=== PATIENT | female | born 1985 | race Hispanic/Latino ===

== ENCOUNTER 2018-03-17 22:45 | Emergency (ER) | payer MEDICAID, OTHER ==
[2018-03-17 23:09] LABS: APPEARANCE,URINE Clear (CLEAR); BILIRUBIN,URINE Negative (NEGATIVE); COLOR,URINE Yellow (YELLOW); GLUCOSE, URINE (UA) Negative (NEGATIVE); KETONES,URINE Negative (NEGATIVE); LEUKOCYTE ESTERASE ,URINE Negative (NEGATIVE); NITRATE,URINE Negative (NEGATIVE); OCCULT BLOOD,URINE Negative (NEGATIVE); PROTEIN,URINE Negative (NEGATIVE); UROBILINOGEN,URINE 0.2 mg/dL (0.2-1.0)
[2018-03-17 23:17] LABS: AMPHET/METH SCREEN,URINE NEGATIVE (NEGATIVE); BARBITURATE SCREEN, URINE NEGATIVE (NEGATIVE); BENZODIAZEPINES SCREEN,URINE NEGATIVE (NEGATIVE); CANNABINOID SCREEN,URINE NEGATIVE (NEGATIVE); COCAINE SCREEN,URINE NEGATIVE (NEGATIVE); OPIATE SCREEN,URINE NEGATIVE (NEGATIVE); PHENCYCLIDINE SCREEN,URINE NEGATIVE (NEGATIVE)
[2018-03-17 23:29] LABS: BASOPHILS % (AUTO) 0.8 % (0.0-5.0); EOSINOPHILS % (AUTO) 0.8 % (0.0-8.0); HEMATOCRIT 36.8 % (36-48); LYMPHOCYTES % (AUTO) 20.5 % (21.0-51.0); MEAN CORPUSCULAR HEMOGLOBIN 28.8 pg (27.0-33.0); MEAN CORPUSCULAR HGB CONC 33.7 g/dL (32.0-36.0); MEAN CORPUSCULAR VOLUME 85.3 fL (79-99); MONOCYTES % (AUTO) 5.4 % (3.0-13.0); NEUTROPHILS % (AUTO) 72.5 % (40.0-77.0); PLATELET COUNT (AUTO) 339 K/uL (130-400); RED BLOOD CELL COUNT(AUTO) 4.31 MIL/uL (4.00-5.50); RED CELL DISTRIBUTION WIDTH 14.5 % (11.0-15.5); WHITE BLOOD COUNT (AUTO) 10.9 K/uL (4.8-10.8)
[2018-03-17 23:36] LABS: CREATININE 0.6 mg/dL (0.5-1.5); POTASSIUM 3.5 mmol/L (3.5-5.1)
[2018-03-17 23:41] LABS: INR 0.98 (0.85-1.15); PARTIAL THROMBOPLASTIN TIME 26.6 SEC (26.3-35.5); PROTHROMBIN TIME 10.3 SEC (9.6-11.6)
[2018-03-17 23:50] LABS: ALBUMIN 3.5 g/dL (3.5-5.0); BILIRUBIN,TOTAL 0.1 mg/dL (0.2-1.0); CREATINE KINASE MB 0.8 ng/mL (0.5-3.6); TOTAL PROTEIN, SERUM 7.8 g/dL (6.0-8.3)
== END 2018-03-18 00:15 | disposition home or self-care (01) ==
LOC: EDH 22:45
DX: R42 Dizziness and giddiness (principal); R03.0 Elevated blood-pressure reading, without diagnosis of hypertension; Z98.890 Other specified postprocedural states
CPT/HCPCS: 36415; 80053; 80305; 81003; 81025; 82550; 82553; 84484; 85025; 85610; 85730; 93005

== ENCOUNTER 2018-10-06 21:34 | Emergency (ER) | payer SELFPAY | END 2018-10-06 22:51 | disposition home or self-care (01) | LOC: EDH 21:34 | DX: M79.602 Pain in left arm (principal); R03.0 Elevated blood-pressure reading, without diagnosis of hypertension | CPT/HCPCS: 93005 ==

== ENCOUNTER 2019-07-16 22:29 | Emergency (ER) | payer MEDICAID ==
[2019-07-16] MEDS ORDERED: SODIUM CHLORIDE 0.9% 1000ML 1,000 ML IV ONE (23:24)
[2019-07-16 23:33] LABS: BASOPHILS % (AUTO) 1.5 % (0.0-5.0); EOSINOPHILS % (AUTO) 2.6 % (0.0-8.0); LYMPHOCYTES % (AUTO) 29.5 % (21.0-51.0); MEAN CORPUSCULAR HEMOGLOBIN 28.9 pg (27.0-33.0); MEAN CORPUSCULAR HGB CONC 34.1 g/dL (32.0-36.0); MEAN CORPUSCULAR VOLUME 84.9 fL (79-99); MONOCYTES % (AUTO) 6.4 % (3.0-13.0); PLATELET COUNT (AUTO) 333 K/uL (130-400); RED BLOOD CELL COUNT(AUTO) 4.24 MIL/uL (4.00-5.50); RED CELL DISTRIBUTION WIDTH 14.6 % (11.0-15.5); WHITE BLOOD COUNT (AUTO) 9.8 K/uL (4.8-10.8)
[2019-07-16 23:42] LABS: CREATININE 0.5 mg/dL (0.5-1.5); POTASSIUM 3.8 mmol/L (3.5-5.1)
[2019-07-17 00:06] LABS: APPEARANCE,URINE Clear (CLEAR); BILIRUBIN,URINE Negative (NEGATIVE); COLOR,URINE Yellow (YELLOW); GLUCOSE, URINE (UA) Negative (NEGATIVE); KETONES,URINE Negative (NEGATIVE); LEUKOCYTE ESTERASE ,URINE Negative (NEGATIVE); NITRATE,URINE Negative (NEGATIVE); OCCULT BLOOD,URINE Moderate (NEGATIVE); PROTEIN,URINE Negative (NEGATIVE); UROBILINOGEN,URINE 0.2 mg/dL (0.2-1.0)
[2019-07-17 00:25] LABS: BACTERIA,URINE None Seen /HPF (None Seen); SQUAMOUS EPITHELIAL CELL,UR Few /HPF (0-2); WBC,URINE None Seen /HPF (0-1)
== END 2019-07-17 00:51 | disposition home or self-care (01) ==
LOC: EDH 22:29
DX: O20.0 Threatened abortion (principal); Z98.890 Other specified postprocedural states; Z3A.01 Less than 8 weeks gestation of pregnancy
CPT/HCPCS: 36415; 76801; 80048; 81001; 84702; 85025; 99284; J7030

== ENCOUNTER 2023-11-18 21:30 | Emergency (ER) | payer MEDICAID, OTHER ==
[~2023-11-18] VITALS: Ht 160 cm; Wt 66.2 kg
[2023-11-18 21:52] LABS: RAPID GROUP A STREP negative (NEGATIVE)
[2023-11-18 22:00] LABS: INFLUENZA TYPE A Negative For Type A (NEGATIVE); INFLUENZA TYPE B Negative For Type B (NEGATIVE)
[2023-11-18] MEDS ORDERED: ONDANSETRON ODT 4MG TAB SL ONE (22:00)
[2023-11-18] MEDS ORDERED: ACETAMINOPHEN 500 MG TABLET PO ONE (22:00)
[2023-11-18 22:03] LABS: SARS-CoV-2, RNA, NAAT NEGATIVE SARS CoV-2 (NEGATIVE)
[2023-11-18 22:04] LABS: APPEARANCE,URINE CLEAR (CLEAR); BILIRUBIN,URINE NEGATIVE (NEGATIVE); COLOR,URINE YELLOW (YELLOW); GLUCOSE, URINE (UA) NEGATIVE (NEGATIVE); KETONES,URINE >=80 mg/dL (NEGATIVE); LEUKOCYTE ESTERASE ,URINE NEGATIVE Leu/uL (NEGATIVE); NITRATE,URINE NEGATIVE (NEGATIVE); OCCULT BLOOD,URINE MODERATE (NEGATIVE); PH,URINE 5.5 (5.0-8.0); PROTEIN,URINE 70 mg/dL (NEGATIVE); UROBILINOGEN,URINE 0.2 mg/dL (0.2-1.0)
[2023-11-18 22:05] LABS: ADD UA MICROSCOPIC YES
[2023-11-18 22:07] LABS: HCG,QUALITATIVE URINE NEGATIVE (NEGATIVE)
[2023-11-18 22:09] LABS: BACTERIA,URINE RARE /HPF (None Seen); MUCUS,URINE MANY LPF (None Seen); SQUAMOUS EPITHELIAL CELL,UR FEW /HPF (0-2)
[2023-11-18 22:20] VITALS: TEMP 101.2
[2023-11-19] MEDS ORDERED: L AC460C PO (01:15)
[2023-11-19] MEDS ORDERED: ONDA4TAB10 PO (01:15)
[2023-11-19 01:25] VITALS: BP 127/67; PULSE 85; RESP 16; O2SAT 98
== END 2023-11-19 01:28 | disposition home or self-care (01) ==
LOC: EDH 21:30
DX: A08.4 Viral intestinal infection, unspecified (principal); R19.7 Diarrhea, unspecified; R11.10 Vomiting, unspecified; Z20.822 Contact with and (suspected) exposure to COVID-19; Z98.890 Other specified postprocedural states; Z79.899 Other long term (current) drug therapy
CPT/HCPCS: 81001; 81025; 87088; 87635; 87804; 87880

== ENCOUNTER 2025-02-23 23:09 | Observation (INO) | payer BC ==
[~2025-02-23] VITALS: Ht 160 cm; Wt 67.8 kg
--- NOTE | 2025-02-23 23:14 | NUR ---
UA CUP PROVIDED
[2025-02-23 23:30] LABS: BASOPHILS # (AUTO) 0.09 K/uL (0.00-0.20); BASOPHILS % (AUTO) 0.8 % (0.0-5.0); EOSINOPHILS # (AUTO) 0.09 K/uL (0.00-0.70); EOSINOPHILS % (AUTO) 0.8 % (0.0-8.0); HEMATOCRIT 37.6 % (36-48); IMMATURE GRANULOCYTE ABSOLUTE 0.04 K/uL (0-1); LYMPHOCYTES # (AUTO) 3.1 K/uL (1.0-4.8); LYMPHOCYTES % (AUTO) 27.8 % (21.0-51.0); MEAN CORPUSCULAR HEMOGLOBIN 28.7 pg (27.0-33.0); MEAN CORPUSCULAR HGB CONC 32.7 g/dL (32.0-36.0); MEAN CORPUSCULAR VOLUME 87.6 fL (79-99); MONOCYTES # (AUTO) 0.7 K/uL (0.1-1.0); MONOCYTES % (AUTO) 6.1 % (3.0-13.0); NEUTROPHILS # (AUTO) 7.3 K/uL (1.8-7.7); NEUTROPHILS % (AUTO) 64.1 % (40.0-77.0); PLATELET COUNT (AUTO) 403 K/uL (130-400); RED BLOOD CELL COUNT(AUTO) 4.29 MIL/uL (4.00-5.50); RED CELL DISTRIBUTION WIDTH 14.3 % (11.0-15.5); WHITE BLOOD COUNT (AUTO) 11.3 K/uL (4.8-10.8)
[2025-02-23] MEDS ORDERED: morPHINE 2 MG SYG IVP ONE (23:30)
[2025-02-23] MEDS ORDERED: ondanSETRON 4MG INJ IVP ONE (23:30)
[2025-02-23 23:45] LABS: CREATININE 0.8 mg/dL (0.5-1.0); POTASSIUM 3.3 mmol/L (3.5-5.1)
[2025-02-23 23:49] LABS: ALBUMIN 3.8 g/dL (3.5-5.0); BILIRUBIN,DIRECT 0.1 mg/dL (0.0-0.3); BILIRUBIN,TOTAL 0.1 mg/dL (0.2-1.0); TOTAL PROTEIN, SERUM 8.3 g/dL (6.0-8.3)
[2025-02-24] VITALS (7 sets, daily range): BP systolic 107–130; BP diastolic 63–86; PULSE 55–72; RESP 16–18; TEMP 97.6–98.2; O2SAT 99
[2025-02-24] MEDS: hydroMORPHone 1 MG INJ IVP ONE (00:03)
[2025-02-24] MEDS: ondanSETRON 4MG INJ IVP ONE (00:03)
[2025-02-24] MEDS ORDERED: IOHEXOL-350 75 ML VIAL IV ONE (00:30)
[2025-02-24] MEDS ORDERED: LACTULOSE 20 GM/30 ML UDCUP PO PRN (01:30)
[2025-02-24] MEDS ORDERED: acetaMINOPHEN 650 MG SUPPOSITORY RC PRN (01:30)
[2025-02-24] MEDS ORDERED: hydroMORPHone 1 MG INJ IVP PRN (01:30)
[2025-02-24] MEDS ORDERED: ondanSETRON 4MG INJ IVP PRN (01:30)
[2025-02-24] MEDS ORDERED: hydrALAZine 20MG/ML VIAL IV PRN (01:30)
[2025-02-24] MEDS ORDERED: doCUSate SODIUM 100 MG CAP PO PRN (01:30)
--- NOTE | 2025-02-24 01:30 | HMCIMG ---
CT ABDOMEN/PELVIS W/CONTRAST HISTORY: Abdominal pain COMPARISON: None TECHNIQUE: Multiple sequential axial images of the abdomen and pelvis were obtained from the dome of the diaphragm through symphysis pubis. Patient was given 75 cc of through intravenous route. Oral contrast was not given. FINDINGS: No pleural effusion is seen bilaterally. There is no evidence of parenchymal disease or pulmonary nodule of the visualized lower lungs. Degenerative changes of the thoracolumbar spine are present. The heart is not enlarged. Liver is borderline enlarged measuring 16.3 cm. Gallbladder is distended with pericholecystic fluid. Acute cholecystitis cannot be excluded. There is diverticulosis. The liver, spleen, adrenal glands and pancreas are unremarkable. There is no evidence of hydronephrosis bilaterally. No evidence of renal stone is seen. Fecal material is seen in the colon. There are normal size retroperitoneal and mesenteric lymph nodes. No ascites is seen. Atherosclerotic changes are present. Pelvic sidewalls are symmetric bilaterally. There is moderately distended. IMPRESSION: 1. Gallbladder is distended with pericholecystic fluid. Acute cholecystitis cannot be excluded. CT was performed with one or more following dose reduction techniques: automated exposure control, adjustment of the mA and kv according to patient's size, or use of a iterative reconstruction technique.
--- NOTE | 2025-02-24 01:37 | HP ---
[facility] HISTORY AND PHYSICAL Date of Service: Feb 24, 2025 Time of Service: 01:37 PCP: Dr. Thea Silva Attending/supervising physicians: Dr. Jordan and Dr. Mcconnell HISTORY OF PRESENT ILLNESS: Ms Tovar is a 39-year-old female with a past medical history of cholelithiasis who presented to [facility] for evaluation of severe midepigastric abdominal pain that radiates to the back. The pain started suddenly at approximately 6:00 p.m. today. She reports associated nausea with vomiting. Denies any fevers. The pa in is rated 10/10. Her symptoms started 1 hour after she ate chicken and pasta. She was seen in this emergency department on 02/17/2025 for the same complaint and was admitted but ultimately discharged with a diagnosis of biliary colic. The patient reports that she was seen by General surgery, but was told that no surgery was needed during that admission. CT abdomen and pelvis without contrast: 1. Gallbladder is distended with pericholecystic fluid. Acute cholecystitis cannot be excluded. ED provider administered Zosyn 3.375, Dilaudid1 mg IV, Zofran 4 mg IV x2 doses, morphine2 mg IV. ED provider request patient be admitted with the diagnosis of acute cholecystitis. I assessed the patient in 412. Patient was comfortable, in no distress. I informed the patient of labs, diagnostics, and plan of care. She verbalized understanding and is in agreement with the plan. Plan and assessment are listed below. REVIEW OF SYSTEMS ROS reviewed with patient. All pertinent positives mentioned above. Otherwise negative, noncontributory, or non-pertinent. PAST MEDICAL HISTORY: As mentioned above PAST SURGICAL HISTORY: and tummy tuck PAST SOCIAL HISTORY: Denied alcohol, tobacco, illicit drug use FAMILY HISTORY: Noncontributory Coded Allergies: No Known Drug Allergies (Unverified Allergy, Unknown, 07/17/19) PHYSICAL EXAM GENERAL APPEARANCE: The patient is awake, alert, and oriented, in no acute cardiopulmonary distress. NEUROLOGICAL: Cranial nerves II-XII grossly intact. Motor is 5/5 in bilateral upper and lower extremities proximal to distal. No sensory deficits. HEENT: Face is symmetric. Pupils are equal and reactive. Extraocular movements are intact. NECK: Supple. No JVD. No thyromegaly. No submental, submandibular, pre- /postauricular, occipital or supraclavicular lymphadenopathy. CHEST: Normal chest expansion. No Telemetry. LUNGS: Absence of any rales, rhonchi or any wheezing. CARDIOVASCULAR: Regular. S1 and S2 normal. No appreciable rubs, murmurs or gallops. ABDOMEN: Soft, nontender, and nondistended. There is no rebound, voluntary guarding, or rigidity. : Deferred. No Terrazas. EXTREMITIES: Non-edematous and not cyanotic. No clubbing. Good capillary refill. SKIN: No skin breakdown. Vital Sign (Last 24 Hours) 02/24/25 00:07 Temp 98.4 Pulse 68 Resp 18 B/P (MAP) 117/61 Pulse Ox 97 O2 Delivery Room Air* O2 Flow Rate 0 FiO2 21 LABS: Laboratory: Test 02/23/25 23:24 Range/Units White Blood Count 11.3 H 4.8-10.8 K/uL Red Blood Count 4.29 4.00-5.50 MIL/uL Hemoglobin 12.3 12.0-16.0 g/dL Hematocrit 37.6 36-48 % Mean Corpuscular Volume 87.6 79-99 fL Mean Corpuscular Hemoglobin 28.7 27.0-33.0 pg Mean Corpuscular Hemoglobin Concent 32.7 32.0-36.0 g/dL Red Cell Distribution Width 14.3 11.0-15.5 % Platelet Count 403 H 130-400 K/uL Mean Platelet Volume 10.2 7.5-10.5 fL Immature Granulocyte % (Auto) 0.4 0-1 % Neutrophils (%) (Auto) 64.1 40.0-77.0 % Lymphocytes (%) (Auto) 27.8 21.0-51.0 % Monocytes (%) (Auto) 6.1 3.0-13.0 % Eosinophils (%) (Auto) 0.8 0.0-8.0 % Basophils (%) (Auto) 0.8 0.0-5.0 % Neutrophils # (Auto) 7.3 1.8-7.7 K/uL Lymphocytes # (Auto) 3.1 1.0-4.8 K/uL Monocytes # (Auto) 0.7 0.1-1.0 K/uL Eosinophils # (Auto) 0.09 0.00-0.70 K/uL Basophils # (Auto) 0.09 0.00-0.20 K/uL Absolute Immature Granulocyte (auto 0.04 0-1 K/uL Nucleated Red Blood Cells 0.0 0.0-0.19 % Sodium Level 138 136-145 mmol/L Potassium Level 3.3 L 3.5-5.1 mmol/L Chloride Level 101 101-111 mmol/L Carbon Dioxide Level 29 21-32 mmol/L Blood Urea Nitrogen 24 H 7-18 mg/dL Creatinine 0.8 0.5-1.0 mg/dL Glomerular Filtration Rate Calc 97 >90 mL/min Random Glucose 133 H 70-105 mg/dL Total Calcium 8.2 L 8.5-10.1 mg/dL Total Bilirubin 0.1 L 0.2-1.0 mg/dL Direct Bilirubin 0.1 0.0-0.3 mg/dL Aspartate Amino Transf (AST/SGOT) 14 10-37 U/L Alanine Aminotransferase (ALT/SGPT) 20 12-78 U/L Alkaline Phosphatase 74 50-136 U/L Total Protein 8.3 6.0-8.3 g/dL Albumin 3.8 3.5-5.0 g/dL Lipase 55 16-77 U/L Serum Test, Qualitative NEGATIVE NEGATIVE Current Medications Medications (Trade) Dose Ordered Sig/Isaura Route PRN Reason Start Time Stop Time Status Last Admin Dose Admin Acetaminophen (TYLenol 325MG TAB) 650 mg Q6H PRN PO FEVER/MILD PAIN LEVEL 1-3 02/24/25 01:30 03/26/25 01:29 UNV Acetaminophen (TYLenol 650MG SUPPOSITORY) 650 mg Q6H PRN RC FEVER / MILD PAIN 1-3 IF NPO 02/24/25 01:30 03/26/25 01:29 UNV Dextrose (D50w) 50 ml AD PRN IV HYPOGLYCEMIA PROTOCOL 02/24/25 02:00 03/26/25 01:59 UNV Docusate Sodium (COLace 100MG CAP) 100 mg BID PRN PO c 02/24/25 01:30 03/26/25 01:29 UNV Glucagon (Glucagon 1mg Kit) 1 mg AD PRN IM HYPOGLYCEMIA PROTOCOL 02/24/25 02:00 03/26/25 01:59 UNV Hydralazine HCl (APRESOLine 20MG INJ) 10 mg Q6H PRN IV SBP GREATER THAN 160 02/24/25 01:30 03/26/25 01:29 UNV Hydromorphone HCl (DiLAUDid 1MG INJ) 1 mg Q4H PRN IVP SEVERE PAIN (7-10) 02/24/25 01:30 03/01/25 01:29 UNV Insulin Human Regular (humuLIN R 100 UNIT/ML 3ML) INSULIN SLIDING SCAL... Q6H6 SQ 02/24/25 06:00 03/26/25 05:59 UNV Lactated Ringer's 1,000 ml @ 75 mls/hr [id number] IV 02/24/25 01:30 03/26/25 01:29 UNV Lactulose (Constulose 20gm/ 30ml Udcup) 20 gm Q6H PRN PO CONSTIPATION 02/24/25 01:30 03/26/25 01:29 UNV Magnesium Sulfate 50 ml @ 0 mls/hr PROTOCOL PRN IV MAGNESIUM PROTOCOL 02/24/25 02:00 03/26/25 01:59 UNV Ondansetron HCl (zoFRAN 4MG INJ) 4 mg Q6H PRN IVP NAUSEA/VOMITING 02/24/25 01:30 03/26/25 01:29 UNV Potassium Chloride 100 ml @ 100 mls/hr AD PRN IV POTASSIUM PROTOCOL 02/24/25 02:00 03/26/25 01:59 UNV Temazepam (restORIL 15 MG CAP) 15 mg HS PRN PO INSOMNIA/SLEEP 02/24/25 01:30 03/26/25 01:29 UNV DIAGNOSTICS / RADIOLOGY: [ ] ASSESSMENT: Distended gallbladder with pericholecystic fluid, acute cholecystitis not exc luded per CT on 02/23/2025 Intractable abdominal pain, POA Leukocytosis. Hypokalemia) Acute dehydration, POA Ketonuria Hyperglycemia History of diverticulitis PLAN: Admit patient to medical floor. P.r.n. medications for: Pain management, nausea, vomiting, fever, constipation, hypertension Keep NPO for now. LR at 75 mL an hour. Continue Zosyn IV. Consult general surgery. Monitor liver and renal function. Monitor electrolytes and treat accordingly. Oxygen as needed to keep SpO2 equal greater than 92%. Glucometer checks a.c. and HS with insulin regular sliding scale coverage as needed. Blood pressure checks every 4 hours and as needed. Reconcile home medications once available. A.m. labs: CBC, CMP, Mag, phos, TSH, A1c. GI and DVT prophylaxis. ADVANCED CARE PLANNING 1. Which of the following were discussed? Hospice Care - No Therapeutic options - Yes Advance Directives - Yes Other discussions - 2. Discussed with who? Patient 3. Voluntary nature of this service was explained to the patient? Yes 4. Amount of time spent - __ over 35 minute 5. Reviewed by Physician? (if this service was performed by NPP) Yes ATTESTATION BY PHYSICIAN I have seen and examined the patient. I reviewed the documentation, medical decision making, and treatment plan as noted by the mid-level provider above. I agree with the findings and plan of care. ML [facility] Feb 24, 2025 01:37
--- NOTE | 2025-02-24 01:55 | ERN ---
General Chief Complaint: Abdominal Pain Stated Complaint: ABD PAIN Time Seen by MD: 23:13 Time Seen by Midlevel: 23:13 Source: patient History of Present Illness Initial Comments Patient is a 39-year-old female with a past medical history of cholelithiasis presenting to the emergency department with a severe midepigastric abdominal pain that radiates to the back. The pain started suddenly at approximately 6:00 p.m. today. She reports associated nausea with vomiting. Denies any fevers. The pain is rated 10/10. Her symptoms started 1 hour after she ate chicken and pasta. She was seen in our emergency department on 02/17/2025 for the same complaint and was admitted but ultimately discharged with a diagnosis of biliary colic. Allergies: Coded Allergies: No Known Drug Allergies (Unverified Allergy, Unknown, 07/17/19) Home Meds No Active Prescriptions or Reported Meds Past Medical History Past Medical History: Diverticulitis Past Surgical History: Other, Surgical History Other: TUMMY TUCK Female( History) History: Not Applicable LMP: Feb 08, 2025 ROS Dictation CONSTITUTIONAL: Negative except for HPI HEAD/FACE: Negative except for HPI EENT: Negative except for HPI RESPIRATORY: Negative except for HPI GASTROINTESTINAL/ABDOMINAL: Negative except for HPI GENITOURINARY: Negative except for HPI MUSCULOSKELETAL: Negative except for HPI INTEGUMENTARY: Negative except for HPI NEUROLOGICAL/PSYCH: Negative except for HPI HEMATOLOGIC/LYMPHATIC: Negative except for HPI All Systems Negative, Except as noted above. 13 point review of systems assessed and all negative except for above. Physical Exam Physical Exam Dictation Vital Signs reviewed General Appearance: Alert, oriented x 3, moderate distress secondary to abdom inal pain Head and Face: non-traumatic. Eyes: PERRL, pink conjunctivas, eyelid no trauma, anterior chamber with arcus senilis. Ears: Pinnas intact and no signs of trauma or erythema ear canals clear and no discharge TM no erythema Nose: No discharge, no bleeding. Oropharynx: Mouth normal, tongue pink, pharynx clear,no erythema, tonsils no exudates, no abscesses noted, mucous membrane moist Neck: Supple, non-tender, no thyromegaly, no masses, no JVD, no bruits Breast:Deferred Chest:No tenderness, no crepitus, no paradoxical movement, no retractions Lungs:Clear, well-ventilated, symmetric, no rales, no wheezing, no rhonchi, no stridor, good breath sounds bilaterally Heart: Regular rate, regular rhythm, no murmur, no gallops Vascular: no peripheral edema, Abdomen: Soft, positive bowel sounds, nondistended, no guarding, Moderate right upper quadrant abdominal tenderness, positive rebound, no masses no hepatomegaly, no splenomegaly, no Gallegos's sign, no hernias. Rectal: Deferred Genital: Deferred Neurological: Normal speech, motor function intact, sensory function intact Musculoskeletal: Neck nontender, full range of motion, back nontender, full range of motion, Extremities: nontender, full range of motion Skin: Color pink, dry, no turgor, no rash, no lacerations, no abrasions, no contusions. Lymphatic: Deferred Results Laboratory and Microbiology Lab and Micro Result Laboratory Tests Test 02/23/25 23:24 White Blood Count 11.3 K/uL (4.8-10.8) H Red Blood Count 4.29 MIL/uL (4.00-5.50) Hemoglobin 12.3 g/dL (12.0-16.0) Hematocrit 37.6 % (36-48) Mean Corpuscular Volume 87.6 fL (79-99) Mean Corpuscular Hemoglobin 28.7 pg (27.0-33.0) Mean Corpuscular Hemoglobin Concent 32.7 g/dL (32.0-36.0) Red Cell Distribution Width 14.3 % (11.0-15.5) Platelet Count 403 K/uL (130-400) H Mean Platelet Volume 10.2 fL (7.5-10.5) Immature Granulocyte % (Auto) 0.4 % (0-1) Neutrophils (%) (Auto) 64.1 % (40.0-77.0) Lymphocytes (%) (Auto) 27.8 % (21.0-51.0) Monocytes (%) (Auto) 6.1 % (3.0-13.0) Eosinophils (%) (Auto) 0.8 % (0.0-8.0) Basophils (%) (Auto) 0.8 % (0.0-5.0) Neutrophils # (Auto) 7.3 K/uL (1.8-7.7) Lymphocytes # (Auto) 3.1 K/uL (1.0-4.8) Monocytes # (Auto) 0.7 K/uL (0.1-1.0) Eosinophils # (Auto) 0.09 K/uL (0.00-0.70) Basophils # (Auto) 0.09 K/uL (0.00-0.20) Absolute Immature Granulocyte (auto 0.04 K/uL (0-1) Nucleated Red Blood Cells 0.0 % (0.0-0.19) Sodium Level 138 mmol/L (136-145) Potassium Level 3.3 mmol/L (3.5-5.1) L Chloride Level 101 mmol/L (101-111) Carbon Dioxide Level 29 mmol/L (21-32) Blood Urea Nitrogen 24 mg/dL (7-18) H Creatinine 0.8 mg/dL (0.5-1.0) Glomerular Filtration Rate Calc 97 mL/min (>90) Random Glucose 133 mg/dL (70-105) H Total Calcium 8.2 mg/dL (8.5-10.1) L Total Bilirubin 0.1 mg/dL (0.2-1.0) L Direct Bilirubin 0.1 mg/dL (0.0-0.3) Aspartate Amino Transf (AST/SGOT) 14 U/L (10-37) Alanine Aminotransferase (ALT/SGPT) 20 U/L (12-78) Alkaline Phosphatase 74 U/L (50-136) Total Protein 8.3 g/dL (6.0-8.3) Albumin 3.8 g/dL (3.5-5.0) Lipase 55 U/L (16-77) Serum Test, Qualitative NEGATIVE (NEGATIVE) Labs Reviewed?: Yes MDM MDM: Patient is a 39-year-old female with a past medical history of cholelithiasis presenting to the emergency department with a severe midepigastric abdominal pain that radiates to the back. The pain started sudd enly at approximately 6:00 p.m. today. She reports associated nausea with vomiting. Denies any fevers. The pain is rated 10/10. Her symptoms started 1 hour after she ate chicken and pasta. She was seen in our emergency department on 02/17/2025 for the same complaint and was admitted but ultimately discharged with a diagnosis of biliary colic. Initial clinical evaluation reveals the patient in moderate amount of distress secondary to abdominal pain. Her initial vital signs are remarkable for a temperature of 96.8 heart rate is 64 beats per minute. Blood pressure is 150/88. O2 saturation is 100% on room air. Her CBC shows mild leukocytosis with a white blood cell count of 11.3. No anemia. Platelet count is slightly elevated at 403. Chemistries show slight hypokalemia with a potassium level of 3.3. Her bilirubin and liver function tests are unremarkable. Her lipase is normal. Her test was negative. However, upon arrival to the emergency department the patient was in severe distress. A CT scan of the abdomen/pelvis with contrast was obtained which reveals a distended gallbladder with pericholecystic fluid. The patient was started on Zosyn and the case was discussed with the hospitalist on-call who agrees to admit the patient for further observation and management. Differential diagnosis: Acute cholecystitis, pancreatitis, choledocholithiasis Rationale: Tests considered and ordered secondary to shared decision making include: Previous outside records reviewed: Old ER visits. Risk of complication and/or morbidity or mortality of patient management: None Medications-Per medication reconciliation Need for hospitalization: Patient does meet criteria for hospitalization. Need for emergency major/minor surgery: No There are no social concerns with this patient. Prescription drug management Prescriptions will include symptomatic care Patient's prior external medical records from other ER visits were reviewed by me as indicated. Prior testing and results from previous visits were reviewed. Prior tests were taken into account with medical decision making and resource utilization, independent historian/historians were used to obtain complete medical history. I independently interpreted the test that were performed, results were reviewed by me and considered findings on radiology if ordered. Medical management and examination interpretation discussions were had by me with other qualified healthcare professionals as indicated for the patient's care. ED Course Orders Procedure Category Date Status Time Cbc With Differential LAB 02/23/25 Complete 23:13 Basic Metabolic Panel LAB 02/23/25 Complete 23:13 Lipase LAB 02/23/25 Complete 23:13 Hepatic Function Panel LAB 02/23/25 Complete 23:13 Urinalysis Profile LAB 02/23/25 Logged 23:13 Testing, LAB 02/23/25 Complete Serum Hcg 23:13 Morphine 2mg Syg PHA 02/23/25 Complete (Morphine 2mg Syg) 23:30 Ondansetron 4mg Inj PHA 02/23/25 Complete (Zofran 4mg Inj) 23:30 Ondansetron 4mg Inj PHA 02/24/25 Complete (Zofran 4mg Inj) 00:00 Hydromorphone 1 Mg PHA 02/24/25 Complete Inj (Dilaudid 1mg Inj 00:00 Ct Abdomen/Pelvis CT 02/23/25 Resulted W/Contrast 23:48 Iohexol (Omnipaque) PHA 02/24/25 Complete 00:30 Admit Orders ADM 02/24/25 Transmitted 01:26 I&O Q Shift CPOE 02/24/25 Transmitted 01:29 Activity: Br W/Brp CPOE 02/24/25 Transmitted With Assist 01:29 Npo Except For Meds CPOE 02/24/25 Transmitted 01:29 O2 Order RT 02/24/25 Transmitted 01:29 Cbc Without LAB 02/25/25 Verified Differential 04:00 Basic Metabolic Panel LAB 02/25/25 Verified 04:00 Magnesium LAB 02/25/25 Verified 04:00 Phosphorus LAB 02/25/25 Verified 04:00 Lactated Ringers PHA 02/24/25 Logged 1000ml (Lactated 01:30 Acetaminophen 325 Tab PHA 02/24/25 Logged (Tylenol 325mg Tab 01:30 Acetaminophen 650mg PHA 02/24/25 Logged Supp (Tylenol 650mg 01:30 Lactulose 20 Gm/30 Ml PHA 02/24/25 Logged Udcup (Constulose 01:30 Docusate Sodium 100 PHA 02/24/25 Logged Mg Cap (Colace 100mg 01:30 Temazepam 15 Mg Cap PHA 02/24/25 Logged (Restoril 15 Mg Cap) 01:30 Ondansetron 4mg Inj PHA 02/24/25 Logged (Zofran 4mg Inj) 01:30 Hydralazine 20mg Inj PHA 02/24/25 Logged (Apresoline 20mg In 01:30 Hydromorphone 1 Mg PHA 02/24/25 Logged Inj (Dilaudid 1mg Inj 01:30 Apply Scds CPOE 02/24/25 Transmitted 01:29 Elevate Hob At 30 CPOE 02/24/25 Transmitted Degrees 01:29 Initiate CAITLIN 02/24/25 In Process Hyperglycemia Protoco 01:29 Insulin Regular, PHA 02/24/25 Logged Human 3ml (Humulin R 06:00 Magnesium 2gm Iv PHA 02/24/25 Verified 02:00 Initiate Hypoglycemia CAITLIN 02/24/25 Verified Protocol 01:33 Dextrose 50%-Water PHA 02/24/25 Verified (D50w) 02:00 Glucagon 1mg Kit PHA 02/24/25 Verified (Glucagon 1mg Kit) 02:00 Initiate Hypokalemia CPOE 02/24/25 Verified Npo Half 01:33 Potassium Chl 10 PHA 02/24/25 Verified Meq/100ml Iv 02:00 Notify Physician If CPOE 02/24/25 Verified There Is 01:33 Notify Md On The Next CPOE 02/24/25 Verified 01:33 Notify Md On The CPOE 02/24/25 Verified Next(Cont.) 01:33 Current Medications Medications (Trade) Dose Ordered Sig/Isaura Route PRN Reason Start Time Stop Time Status Last Admin Dose Admin Acetaminophen (TYLenol 325MG TAB) 650 mg Q6H PRN PO FEVER/MILD PAIN LEVEL 1-3 02/24/25 01:30 03/26/25 01:29 UNV Acetaminophen (TYLenol 650MG SUPPOSITORY) 650 mg Q6H PRN RC FEVER / MILD PAIN 1-3 IF NPO 02/24/25 01:30 03/26/25 01:29 UNV Docusate Sodium (COLace 100MG CAP) 100 mg BID PRN PO c 02/24/25 01:30 03/26/25 01:29 UNV Hydralazine HCl (APRESOLine 20MG INJ) 10 mg Q6H PRN IV SBP GREATER THAN 160 02/24/25 01:30 03/26/25 01:29 UNV Hydromorphone HCl (DiLAUDid 1MG INJ) 1 mg ONCE ONCE IVP 02/24/25 00:00 02/24/25 00:01 DC 02/24/25 00:03 Hydromorphone HCl (DiLAUDid 1MG INJ) 1 mg Q4H PRN IVP SEVERE PAIN (7-10) 02/24/25 01:30 03/01/25 01:29 UNV Insulin Human Regular (humuLIN R 100 UNIT/ML 3ML) INSULIN SLIDING SCAL... Q6H6 SQ 02/24/25 06:00 03/26/25 05:59 UNV Iohexol (Omnipaque) 75 ml STK-MED ONCE IV 02/24/25 00:30 02/24/25 00:31 DC Lactated Ringer's 1,000 ml @ 75 mls/hr [id number] IV 02/24/25 01:30 03/26/25 01:29 UNV Lactulose (Constulose 20gm/ 30ml Udcup) 20 gm Q6H PRN PO CONSTIPATION 02/24/25 01:30 03/26/25 01:29 UNV Morphine Sulfate (morPHINE 2MG SYG) 2 mg ONCE ONCE IVP 02/23/25 23:30 02/23/25 23:26 DC Ondansetron HCl (zoFRAN 4MG INJ) 4 mg ONCE ONCE IVP 02/23/25 23:30 02/23/25 23:26 DC Ondansetron HCl (zoFRAN 4MG INJ) 4 mg ONCE ONCE IVP 02/24/25 00:00 02/24/25 00:01 DC 02/24/25 00:03 Ondansetron HCl (zoFRAN 4MG INJ) 4 mg Q6H PRN IVP NAUSEA/VOMITING 02/24/25 01:30 03/26/25 01:29 UNV Temazepam (restORIL 15 MG CAP) 15 mg HS PRN PO INSOMNIA/SLEEP 02/24/25 01:30 03/26/25 01:29 UNV Vital Signs Date Time Temp Pulse Resp B/P (MAP) Pulse Ox O2 Delivery O2 Flow Rate FiO2 02/24/25 00:07 98.4 68 18 117/61 97 Room Air* 0 21 02/23/25 23:10 96.8 64 16 150/88 100 [place] [address] IMAGING REPORT Signed PATIENT: GRACIE MACIEL MR#: [id number] : 1985 SEX: F AGE: 39 LOCATION: [facility] ORDER 48 STATUS: REG ER REPORT#: [id number] SERVICE 47 REASON: Severe ruq abd pain r/o acute cholecystitis vs pancreatitis ORDERING PHYSICIAN: TRISH TERRELL PROCEDURE: ABD PEL W - CT ABDOMEN/PELVIS W/CONTRAST CT ABDOMEN/PELVIS W/CONTRAST HISTORY: Abdominal pain COMPARISON: None TECHNIQUE: Multiple sequential axial images of the abdomen and pelvis were obtained from the dome of the diaphragm through symphysis pubis. Patient was given 75 cc of through intravenous route. Oral contrast was not given. FINDINGS: No pleural effusion is seen bilaterally. There is no evidence of parenchymal disease or pulmonary nodule of the visualized lower lungs. Degenerative changes of the thoracolumbar spine are present. The heart is not enlarged. Liver is borderline enlarged measuring 16.3 cm. Gallbladder is distended with pericholecystic fluid. Acute cholecystitis cannot be excluded. There is diverticulosis. The liver, spleen, adrenal glands and pancreas are unremarkable. There is no evidence of hydronephrosis bilaterally. No evidence of renal stone is seen. Fecal material is seen in the colon. There are normal size retroperitoneal and mesenteric lymph nodes. No ascites is seen. Atherosclerotic changes are present. Pelvic sidewalls are symmetric bilaterally. There is moderately distended. IMPRESSION: 1. Gallbladder is distended with pericholecystic fluid. Acute cholecystitis cannot be excluded. CT was performed with one or more following dose reduction techniques: automated exposure control, adjustment of the mA and kv according to patient's size, or use of a iterative reconstruction technique. DICTATED BY: CONRAD JENKINS MD DATE: 02/24/25125 ELECTRONICALLY SIGNED BY: CONRAD JENKINS MD DATE: 02/24/25129 DX & DISP Disposition: Inpatient Departure Impression: Primary Impression: Acute cholecystitis Condition: Stable Scripts No Active Prescriptions or Reported Meds Referrals: CASSANDRA PUENTES MD (PCP) I have reviewed the case, and I agree with, Diagnosis and Plan I performed the substantive portion of the visit. I have reviewed and personally made and approve the management plan that is documented in the note by myself or the JANENE. I acknowledge for responsibility for the patient's management plan. TRISH TERRELL Feb 24, 2025 01:55
[2025-02-24] MEDS ORDERED: DEXTROSE 50%-WATER 50 ML DISP.SYRIN IV PRN (02:00)
[2025-02-24] MEDS ORDERED: PoTASSium chloRIDE 10MEQ/100ML 100 ML IV PRN (02:00)
[2025-02-24] MEDS ORDERED: GLUCAGON 1MG KIT 1 MG ML IM PRN (02:00)
[2025-02-24] MEDS ORDERED: MAGNESIUM 2GM PREMIX 50ML 50 ML IV PRN ×2 (02:00→11:30)
[2025-02-24] MEDS: LACTATED RINGERS 1000ML 1,000 ML IV SCH (02:17)
[2025-02-24] MEDS: ZOSYN 3.375GM +NS 50ML IV ONE (02:17)
[2025-02-24 02:47] LABS: APPEARANCE,URINE CLEAR (CLEAR); BILIRUBIN,URINE NEGATIVE (NEGATIVE); COLOR,URINE LIGHT-YELLOW (YELLOW); GLUCOSE, URINE (UA) NEGATIVE (NEGATIVE); KETONES,URINE 5 mg/dL (NEGATIVE); LEUKOCYTE ESTERASE ,URINE NEGATIVE Leu/uL (NEGATIVE); NITRATE,URINE NEGATIVE (NEGATIVE); OCCULT BLOOD,URINE NEGATIVE (NEGATIVE); PROTEIN,URINE 20 mg/dL (NEGATIVE); UROBILINOGEN,URINE 0.2 mg/dL (0.2-1.0)
--- NOTE | 2025-02-24 02:48 | NUR ---
admit note admit to room 412 via stretcher from er, patient awake, alert, ox3, no sob, no c/o pain at this time, no family at this time, teach plan of care, pain management, npo and expected outcome, patient verbalizes understanding via teach back
[2025-02-24 02:50] LABS: ADD UA MICROSCOPIC YES
[2025-02-24 02:52] LABS: MUCUS,URINE RARE LPF (None Seen); RBC,URINE 0-1 /HPF (0-1); SQUAMOUS EPITHELIAL CELL,UR RARE /HPF (0-2); WBC,URINE 0-1 /HPF (0-1)
[2025-02-24] MEDS: INSULIN humuLIN R 100 UNIT/ML 3ML SQ SCH (06:00)
[2025-02-24] MEDS ORDERED: 0.9%NACL 50ML IV SCH (08:10)
[2025-02-24] MEDS ORDERED: ketOROlac 30MG VIAL (30MG/ML) IVP PRN (08:30)
[2025-02-24] MEDS: ZOSYN 3.375GM +NS 50ML IVPB SCH (08:47)
[2025-02-24] MEDS ORDERED: PoTASSium chloRIDE 20MEQ/100ML 100 ML IV PRN (11:30)
[2025-02-24] MEDS: acetaMINOPHEN 325 MG TAB PO PRN (13:22)
--- NOTE | 2025-02-24 22:36 | CONS ---
HISTORY OF PRESENT ILLNESS: The patient is a 39-year-old, female, admitted earlier this week with epigastric pain, found to have gallstones, but a negative HIDA scan. The patient returned to the ER today, noncompliant with her diet and apparently was having pain again in the Emergency Room. I have been asked to see the patient for possible cholecystectomy. PAST MEDICAL HISTORY: Diverticulitis and above. PAST SURGICAL HISTORY: Tummy tuck and . ALLERGIES: She has no known drug allergies. PHYSICAL EXAMINATION: GENERAL: The patient is awake, alert, and oriented, in no acute distress. She is presently pain-free and has not asked for any pain medication. VITAL SIGNS: Stable. She is afebrile. CHEST: Clear. HEART: Regular rate and rhythm. ABDOMEN: Soft, nontender. No guarding. No rebound. LABORATORY DATA: White count of 11.3, hematocrit of 37.6, platelets 403. LFTs are within normal limits. Beta-hCG is negative. Potassium of 3.3. DIAGNOSTIC DATA: CT of the abdomen showed gallbladder is distended with pericholecystic fluid. Acute cholecystitis cannot be excluded. There is as well diverticulitis and borderline liver. ASSESSMENT AND PLAN: History of cholelithiasis, now pain-free. We will try low-fat diet. The patient wishes attempted to be discharged and scheduled as an outpatient. If the patient does not tolerate, we will schedule for the morning. TID: [id number] RECEIPT: [id number]
[2025-02-25 00:08] VITALS: BP 122/69; PULSE 59; RESP 18; TEMP 98.3
[2025-02-25] MEDS: TEMAZepam 15 MG CAPSULE PO PRN (00:34)
[2025-02-25 04:55] VITALS: BP 94/63; PULSE 56; RESP 16; TEMP 98.2
[2025-02-25 06:00] LABS: BASOPHILS # (AUTO) 0.08 K/uL (0.00-0.20); EOSINOPHILS # (AUTO) 0.14 K/uL (0.00-0.70); EOSINOPHILS % (AUTO) 1.8 % (0.0-8.0); HEMATOCRIT 33.7 % (36-48); IMMATURE GRANULOCYTE ABSOLUTE 0.02 K/uL (0-1); LYMPHOCYTES # (AUTO) 3.2 K/uL (1.0-4.8); LYMPHOCYTES % (AUTO) 39.8 % (21.0-51.0); MEAN CORPUSCULAR HEMOGLOBIN 28.6 pg (27.0-33.0); MEAN CORPUSCULAR HGB CONC 32.6 g/dL (32.0-36.0); MEAN CORPUSCULAR VOLUME 87.8 fL (79-99); MONOCYTES # (AUTO) 0.5 K/uL (0.1-1.0); MONOCYTES % (AUTO) 5.9 % (3.0-13.0); NEUTROPHILS # (AUTO) 4.1 K/uL (1.8-7.7); NEUTROPHILS % (AUTO) 51.2 % (40.0-77.0); PLATELET COUNT (AUTO) 330 K/uL (130-400); RED BLOOD CELL COUNT(AUTO) 3.84 MIL/uL (4.00-5.50); RED CELL DISTRIBUTION WIDTH 14.4 % (11.0-15.5); WHITE BLOOD COUNT (AUTO) 7.9 K/uL (4.8-10.8)
[2025-02-25 06:34] LABS: BILIRUBIN,TOTAL 0.5 mg/dL (0.2-1.0); CREATININE 0.6 mg/dL (0.5-1.0); MAGNESIUM 1.9 mg/dL (1.80-2.40); PHOSPHORUS 3.9 mg/dL (2.5-4.9); POTASSIUM 3.6 mmol/L (3.5-5.1); TOTAL PROTEIN, SERUM 6.6 g/dL (6.0-8.3)
[2025-02-25 08:02] VITALS: BP 109/70; PULSE 58; RESP 16; TEMP 98.3
--- NOTE | 2025-02-25 08:26 | PN ---
no c/o abdominal pain tolerating po abdomen soft nt low fat diet fu outpatient Vitals/Labs Vital Signs Date Time Temp Pulse Resp B/P (MAP) Pulse Ox O2 Delivery O2 Flow Rate FiO2 02/25/25 08:02 98.2 58 16 109/70 99 Room Air 02/24/25 19:15 0 21 Laboratory Tests 02/25/25 04:11 Medications Current Medications Morphine Sulfate 2 mg ONCE ONCE IVP; Start 02/23/25 at 23:30; Stop 02/23/25 at 23:26; Status DC Ondansetron HCl 4 mg ONCE ONCE IVP; Start 02/23/25 at 23:30; Stop 02/23/25 at 23:26; Status DC Ondansetron HCl 4 mg ONCE ONCE IVP Last administered on 02/24/25at 00:03; Start 02/24/25 at 00:00; Stop 02/24/25 at 00:01; Status DC Hydromorphone HCl 1 mg ONCE ONCE IVP Last administered on 02/24/25at 00:03; Start 02/24/25 at 00:00; Stop 02/24/25 at 00:01; Status DC Iohexol 75 ml STK-MED ONCE IV; Start 02/24/25 at 00:30; Stop 02/24/25 at 00:31; Status DC Lactated Ringer's 1,000 ml @ 75 mls/hr [id number] IV Last administered on 02/25/25at 03:58; Start 02/24/25 at 01:30; Stop 03/26/25 at 01:29 Acetaminophen 650 mg Q6H PRN PO Last administered on 02/25/25at 00:32; Start 02/24/25 at 01:30; Stop 03/26/25 at 01:29 Acetaminophen 650 mg Q6H PRN RC; Start 02/24/25 at 01:30; Stop 03/26/25 at 01:29 Lactulose 20 gm Q6H PRN PO; Start 02/24/25 at 01:30; Stop 03/26/25 at 01:29 Docusate Sodium 100 mg BID PRN PO; Start 02/24/25 at 01:30; Stop 03/26/25 at 01:29 Temazepam 15 mg HS PRN PO Last administered on 02/25/25at 00:34; Start 02/24/25 at 01:30; Stop 03/26/25 at 01:29 Ondansetron HCl 4 mg Q6H PRN IVP; Start 02/24/25 at 01:30; Stop 03/26/25 at :29 Hydralazine HCl 10 mg Q6H PRN IV; Start 02/24/25 at 01:30; Stop 03/26/25 at 01:29 Hydromorphone HCl 1 mg Q4H PRN IVP; Start 02/24/25 at 01:30; Stop 03/01/25 at 01:29 Insulin Human Regular INSULIN SLIDING SCAL... Q6H6 SQ; Start 02/24/25 at 06:00; Stop 03/26/25 at 05:59 Magnesium Sulfate 50 ml @ 0 mls/hr PROTOCOL PRN IV; Start 02/24/25 at 02:00; Stop 03/26/25 at 01:59 Dextrose 50 ml AD PRN IV; Start 02/24/25 at 02:00; Stop 03/26/25 at 01:59 Glucagon 1 mg AD PRN IM; Start 02/24/25 at 02:00; Stop 03/26/25 at 01:59 Potassium Chloride 100 ml @ 100 mls/hr AD PRN IV; Start 02/24/25 at 02:00; Stop 03/26/25 at 01:59 Piperacillin Sod/ Tazobactam Sod 3.375 gm ONCE ONCE IV Last administered on 02/24/25at 02:17; Start 02/24/25 at 02:00; Stop 02/24/25 at 02:01; Status DC Piperacillin Sod/ Tazobactam Sod 3.375 gm Q8H IVPB Last administered on 02/24/25at 23:59; Start 02/24/25 at 08:30; Stop 03/06/25 at 08:29 Sodium Chloride 50 ml AD IV; Start 02/24/25 at 08:10; Stop 02/24/25 at 08:09; Status DC Ketorolac Tromethamine 30 mg Q6H PRN IVP; Start 02/24/25 at 08:30; Stop 03/01/25 at 08:29 Magnesium Sulfate 50 ml @ 0 mls/hr PROTOCOL PRN IV; Start 02/24/25 at 11:30; Stop 4/20/25 at 11:12; Status DC Potassium Chloride 100 ml @ 50 mls/hr AD PRN IV; Start 02/24/25 at 11:30; Stop 03/26/25 at 11:29 ASHLEY HAMILTON MD Feb 25, 2025 08:26
--- NOTE | 2025-02-25 09:27 | DS ---
Discharge Summary Hospital Course Summary: Ms Tovar is a 39-year-old female with a past medical history of cholelithiasis who presented to [facility] for evaluation of severe midepigastric abdominal pain that radiates to the back. The pain started suddenly at approximately 6:00 p.m. today. She reports associated nausea with vomiting. Denies any fevers. The pain is rated 10/10. Her symptoms started 1 hour after she ate chicken and pasta. She was seen in this emergency department on 02/17/2025 for the same complaint and was admitted but ultimately discharged with a diagnosis of biliary colic. The patient reports that she was seen by General surgery, but was told that no surgery was needed during that admission. CT abdomen and pelvis without contrast: 1. Gallbladder is distended with pericholecystic fluid. Acute cholecystitis cannot be excluded. 02/25/2025. Patient was started on diet yesterday she has be able to tolerate without nausea and vomiting and abdominal pain. No surgical intervention on this admission surgeon advised her to follow-up in her clinic in one-week for possible elective surgery. Patient denies nausea, vomiting, abdominal pain at this time she is clinically stable for discharge Procedure(s): REASON: Severe ruq abd pain r/o acute cholecystitis vs pancreatitis ORDERING PHYSICIAN: TRISH TERRELL PROCEDURE: ABD PEL W - CT ABDOMEN/PELVIS W/CONTRAST CT ABDOMEN/PELVIS W/CONTRAST HISTORY: Abdominal pain COMPARISON: None TECHNIQUE: Multiple sequential axial images of the abdomen and pelvis were obtained from the dome of the diaphragm through symphysis pubis. Patient was given 75 cc of through intravenous route. Oral contrast was not given. FINDINGS: No pleural effusion is seen bilaterally. There is no evidence of parenchymal disease or pulmonary nodule of the visualized lower lungs. Degenerative changes of the thoracolumbar spine are present. The heart is not enlarged. Liver is borderline enlarged measuring 16.3 cm. Gallbladder is distended with pericholecystic fluid. Acute cholecystitis cannot be excluded. There is diverticulosis. The liver, spleen, adrenal glands and pancreas are unremarkable. There is no evidence of hydronephrosis bilaterally. No evidence of renal stone is seen. Fecal material is seen in the colon. There are normal size retroperitoneal and mesenteric lymph nodes. No ascites is seen. Atherosclerotic changes are present. Pelvic sidewalls are symmetric bilaterally. There is moderately distended. IMPRESSION: 1. Gallbladder is distended with pericholecystic fluid. Acute cholecystitis cannot be excluded. Assessment/Plan: Discharged dx's; Distended gallbladder with pericholecystic fluid, acute cholecystitis not excluded per CT on 02/23/2025 Intractable abdominal pain, POA Leukocytosis. Hypokalemia) Acute dehydration, POA Ketonuria Hyperglycemia History of diverticulitis PLAN: ADMISSION DATE: 02/24/25 DISCHARGE DATE: 02/25/2025 DISPOSITION: Home CONDITION: Stable AREA SUPERVISOR(S): General surgeon FOLLOW UP APPOINTMENT(S): one wk; DR Danuta Velasco PROCEDURES: No surgical intervention on this admission. IMAGING (S) report attached to summary : ct abd MICROBIOLOGY: report attached to summary; none ACTIVITY: ab lisa HOME MEDICATIONS: none NEW MEDICATIONS: none TEACHING: Advised patient to avoid greasy foods. Low fat low carbs. Emergency instructions: The patient was instructed to present to the nearest Emergency Department or call 911 should their symptoms return or worsen. Home Medications: No Active Prescriptions or Reported Meds Time spent arranging discharge: 31-60 minutes ATTESTATION BY PHYSICIAN I have seen and examined the patient. I reviewed the documentation, medical decision making, and treatment plan as noted by the mid-level provider above. I agree with the findings and plan of care. Thuy Fitzpatrick MD, ELIZABETH NP Feb 25, 2025 09:26
[2025-02-25 09:30] VITALS: O2SAT 98
--- NOTE | 2025-02-25 10:00 | NUR ---
DCP: HOME Pt states she lives in a rental home with her 4 kids, 19,15,13,4. Pt denies issues affording rent, utilities of food. Pt is independent, drives and uses no DME or in home care services. PCP is Christ Silva and uses [facility] for rx as needed. Pt denies dc needs and family will transport home at ne. Mother Lisha Tovar [phone] and SHELLY Gaona [phone] Addendum: 02/25/25 at 1007 by OSEI LAZARO Amended: Links added.
--- NOTE | 2025-02-25 11:26 | NUR ---
DISCHARGE Patient ready for discharge. Patient cleared by Dr. Tipton for dc, patient verbalized understanding and will make appointment for follow up. All questions answered. patient IV removed.
== END 2025-02-25 11:40 | disposition home or self-care (01) ==
LOC: EDH 23:09 → INTOOBSV 02-24 01:26 → EDHIP 02-24 01:26 → 4BH 02-24 02:35
PROVIDERS: ADMIT Internal Medicine; ATTEND Internal Medicine
DX: K82.8 Other specified diseases of gallbladder (principal); E87.6 Hypokalemia; D72.829 Elevated white blood cell count, unspecified; E86.0 Dehydration; R73.9 Hyperglycemia, unspecified; R82.4 Acetonuria; K80.00 Calculus of gallbladder with acute cholecystitis without obstruction; I10 Essential (primary) hypertension; K57.92 Diverticulitis of intestine, part unspecified, without perforation or abscess without bleeding; Z79.899 Other long term (current) drug therapy
CPT/HCPCS: 99284; 80076; 80048; 84703; 83690; 85025 ×2; 74177; 96365; 96366 ×3; 96375 ×2; 82948 ×5; 81001; 36415 ×2; 96361; 83735; 84100; 80053; J1171; J2405; G0378 ×34; J2543 ×5; Q9967; A4600; 96374; 99285